=== PATIENT | male | born 1955 | race African-American/Black ===

== ENCOUNTER 2020-09-26 07:45 | Day surgery (SDC) | payer MEDICARE, MEDICAID ==
--- NOTE | 2020-09-25 16:24 | NUR ---
CONFIRMED PT APPT FOR VENAGRAM 09/26/20. VERIFIED WITH PT NO BLOOD THINNERS, CONFIRMED ARRIVAL TIME (PT TAKES PUBLIC TRANSPORTATION) AND VERIFIED NPO AFTER MIDNIGHT STATUS.
[~2020-09-26] VITALS: Ht 182.9 cm; Wt 127.3 kg
--- NOTE | ~2020-09-26 | HEMODYNAMI ---
PATIENT:ANJUM GEORGES MEDICAL RECORD: [id number] : 53 LOCATION:D. ADMISSION DATE: 09/26/20 Generatedon:111:24 Patient name: ANJUM GEORGES Patient #: [id number] SSN: : 1 08/27/1954 Date of study: 09/26/2020 Page: Of Hemodynamic Procedure Report Patient Data Patient Demographics Procedure consent was obtained First Name: ANJUM Gender: Male Last Name: JOSÉ MANUEL : 1955 Patient #: [id number] Age: 65 year(s) Race: Black Additional ID: [id number] Contact details [address]: [address] [place] [address] [place] State: [place] City: [place] Zip code: [address] Admission Admission Data Admission Date: 09/26/2020 Admission Time: 7:45 Procedure Procedure Types Cath Procedure Peripheral Cath Diagnostic Procedure Miscellaneous Pleurex Procedure Description Procedure Date Procedure Date: 09/26/2020 Procedure Start Time: 10:15 Procedure Staff Name Function Satinder Craig MD Performing Physician Jarek David RT Monitor LEIA NIETO RT Scrub Albania Aguilera RN Nurse Maricruz Rodriguez RN Nurse Procedure Data Cath Procedure Fluoroscopy Diagnostic fluoroscopy Total fluoroscopy Time: time: 16.9 min 16.9 min Diagnostic fluoroscopy Total fluoroscopy dose: dose: 1405 mGy 1405 mGy Procedure Medications Medication Administration Route Dosage Heparin Flush Bag added to field 2 bags (1000units/500ml NS) Lidocaine 1% added to field 20 Fentanyl I.V. 50 mcg Versed I.V. 1 mg Fentanyl I.V. 50 mcg Versed I.V. 1 mg Hemodynamics Rest Heart Rate: 58 (bpm) Snapshots Pre Cath Intra NCS Post Cath Vital Signs Time Heart Resp SPO2 etCO2 NIBP (mmHg) Rhythm Pain Sedation Rate (ipm) (%) (mmHg) Status Level (bpm) 9:58:28 8 95 36 119/75(94) NSR 0 (11) 10(A) , No pain 10:02:38 66 9 38.3 131/79(105) NSR 0 (11) 10(A) , No pain 10:06:50 59 12 31.5 133/74(107) NSR 0 (11) 10(A) , No pain 10:11:10 58 7 36.8 120/74(90) NSR 0 (11) 10(A) , No pain 10:15:18 58 19 70 34.5 127/99(124) NSR 0 (11) 10(A) , No pain 10:19:32 57 8 0 127/73(106) NSR 0 (11) 8(A) , No pain 10:23:48 57 9 36.8 124/72(109) NSR 0 (11) 8(A) , No pain 10:28:04 57 12 42.8 132/73(110) NSR 0 (11) 8(A) , No pain 10:32:18 57 10 39.8 139/80(117) NSR 0 (11) 8(A) , No pain 10:36:40 58 17 3.7 135/76(108) NSR 0 (11) 8(A) , No pain 10:41:33 58 11 24.7 137/102(122) NSR 0 (11) 8(A) , No pain 10:45:47 57 11 99 21.7 121/76(109) NSR 0 (11) 8(A) , No pain 10:50:05 58 10 100 40.5 126/74(109) NSR 0 (11) 8(A) , No pain 10:54:19 57 12 38.3 120/76(92) NSR 0 (11) 8(A) , No pain 10:58:35 57 12 39 126/73(106) NSR 0 (11) 8(A) , No pain 11:03:34 57 14 37.5 Measuring NSR 0 (11) 8(A) , No pain 11:03:51 57 12 69 37.5 122/75(106) NSR 0 (11) 8(A) , No pain 11:08:09 57 22 38.3 131/66(112) NSR 0 (11) 8(A) , No pain 11:12:27 59 20 30.8 133/79(108) NSR 0 (11) 8(A) , No pain 11:16:43 58 22 41.3 128/89(95) NSR 0 (11) 8(A) , No pain 11:20:57 58 16 39 140/83(120) NSR 0 (11) 8(A) , No pain Medications Time Medication Route Dose Verified Delivered Reason Notes Effec tiveness by by 10:01:00 Heparin Flush added 2 Satinder Rajan used for Bag to bags Rafa Craig MD procedure (1000units/500ml field DAVIS NS) 10:01:10 Lidocaine 1% added 20ml Satinder Rajan to vial Rafa Craig MD field MD 10:18:11 Fentanyl I.V. 50 Satinder Lovelace for mcg Willy Craig RN sedation 10:18:24 Versed I.V. 1 mg Satinder Lovelace for Willy Craig RN sedation 11:03:50 Fentanyl I.V. 50 Satinder Lovelace for mcg Willy Craig RN sedation 11:04:02 Versed I.V. 1 mg Satinder Lovelace for Willy Craig RN sedation Procedure Log Time Note 9:51:30 Maricruz Rodriguez RN sent for patient. Start room use. 9:51:42 Time tracking: Regular hours (M-F 7:00 - 5:00) 9:51:47 Plan of Care:Hemodynamics will remain stable., Cardiac rhythm will remain stable., Comfort level will be maintained., Respiratory function will remain adequate., Patient/ family verbilizes understanding of procedure., Procedure tolerated without complication., Recovers from procedure without complications.. 9:51:52 Use device set IR Diagnostic 9:51:53 Bag Decanter (2002S) opened to sterile field. 9:51:54 Sterile Angiographic Pack opened to sterile field. 9:51:55 Tegaderm 4 x 4 (1626W) opened to sterile field. 9:52:04 Patient received from Outpatients to IR Alert and oriented. Tansferred to table in Supine position. 9:52:06 Signed procedure consent form obtained from patient. 9:52:09 Correct patient and procedure confirmed by team. 9:52:10 ECG and BP/O2 sat monitors applied to patient. 9:52:11 Full Disclosure recording started 9:52:12 - 9:52:18 H&P Date Dictated: 09/26/2020 H&P Addendum completed by physician on day of procedure. (MUST COMPLETE FOR ALL OUTPATIENTS). 9:52:18 Pre-procedure instructions explained to patient. 9:52:19 Pre-op teaching completed and patient verbalized understanding. 9:52:21 Patient NPO since Midnight. 9:52:29 Is the patient allergic to Iodine/contrast media? No. 9:52:32 Is patient on blood thinner?No 9:54:51 - 9:54:52 ----Pre-sedation anethsthesia assessment.---- 9:54:57 Snore? Yes 9:54:59 Previous problem with sedation/anesthesia? No ? 9:55:01 Sleep apnea? No 9:55:07 Deviated septum? No 9:55:08 Opens mouth fully? Yes 9:55:10 Sticks out tongue? Yes 9:55:12 Airway obstruction? No ? 9:55:14 Dentures? No ? 9:55:27 Right Arm area was prepped with chlora-prep and draped in sterile fashion 9:56:27 IV patent on arrival in left IJ with 0.9% NaCl at O. 9:56:30 Alarms reviewed by Tamera Weinberg 9:56:30 Sharps counted by scrub and verified by Mundo 9:57:22 Vital chart was started 10:01:00 Heparin Flush Bag (1000units/500ml NS) 2 bags added to field was administered by Satinder Craig MD; used for procedure; Verbal order read back and verified. 10:01:10 Lidocaine 1% 20ml vial added to field was administered by Satinder Craig MD; ; Verbal order read back and verified. 10:05:57 Baseline sample Acquired. 10:14:46 Physician arrived 10::47 --------ALL STOP TIME OUT------ 10:14:47 Final Timeout: patient, procedure, and site verified with staff and physician. All members of the team are in agreement. 10:14:53 Right Arm site verified by team. 10:14:58 Fire Safety Assessment: A--An alcohol-based skin anteseptic being used preoperatively., C--Open oxygen or nitrous oxide is being used. 10:15:04 Sedation plan: IV Moderate Sedation Medication:Versed, Fentanyl 10:15:09 Procedure started. 10:15:21 Local anesthetic to right arm with Lidocaine 1% by Satinder Craig MD.INITIAL ACCESS ONLY 10:15:29 Micropuncture VSI 4FR kit opened to sterile field. 10:15:29 GLIDE WIRE ANGLE 180cm (VR9778) opened to sterile field. 10:15:30 GLIDE CATHETER 5FR ANGLED 65cm (CG507) opened to sterile field. 10:18:11 Fentanyl 50 mcg I.V. was administered by Albania Aguilera RN; for sedation ; Verbal order read back and verified. 10:18:24 Versed 1 mg I.V. was administered by Albania Aguilera RN; for sedation; Verbal order read back and verified. 10:20:40 DOUBLE ENDED GUIEDWIRE DOC 145CM (X28371) opened to sterile field. 10:20:42 SHEATH 5FR [place] (YRJ797) opened to sterile field. 10:29:58 GLIDE WIRE Angled Super Stiff 180cm (LE8294) opened to sterile field. 11:03:50 Fentanyl 50 mcg I.V. was administered by Albania Aguilera RN; for sedation ; Verbal order read back and verified. 11:04:02 Versed 1 mg I.V. was administered by Albania Aguilera RN; for sedation; Verbal order read back and verified. 11:11:11 CXI Catheter 90cm (M21311) opened to sterile field. 11:16:14 Procedure ended.(Physican Out) 11:16:24 Fluoroscopy time 16.90 minutes. 11:16:31 Fluoroscopy dose: 1405 mGy 11:16:31 Flurop Dose total: 1405 11:17:24 Post right femoral vein:stable 11:17:28 Post left femoral vein:stable 11:17:34 Post right arm:stable 11:17:49 Post-op/insertion site Right Femoral vein dressed using a 4 x 4 and Tegaderm.x2 11:18:50 Procedure and supply charges have been captured, reviewed, submitted an d are correct. 11:23:55 Report given to Outpatients. 11:23:59 Patient transfered to Outpatients with Bed. 11:24:29 Vital chart was stopped Device Usage Item Name Manufacture Quantity Catalog Hospital Part Current Minima l Lot# / Number Charge Number Stock Stock Serial# Code Bag Decanter Microtek 1 [id number] 5 () Medical Inc. Sterile Cardinal 1 [id number] 078191 340841 5 Angiographic Health Pack Tegaderm 4 x 3M 1 1626W 141057 874764 682040 5 4 (1626W) Micropuncture VSI VASCULAR 1 7266V 970753 416017 5 VSI 4FR kit SOLUTIONS GLIDE WIRE Terumo 1 [id number] 156466 948142 030860 5 ANGLE 180cm (RI6225) GLIDE Terumo 1 CG507 813562 167400 5 CATHETER 5FR ANGLED 65cm (CG507) DOUBLE ENDED [employer] 1 G09664 489452 709367 1 [id number] GUIEDWIRE DOC 145CM (B65732) SHEATH 5FR Terumo 1 KEF535 776606 367842 499338 5 [place] (PMN146) GLIDE WIRE Terumo 1 KP7527 866926 899801 5 Angled Super Stiff 180cm (ZV0390) CXI Catheter [employer] 1 F72039 836025 368005 093117 5 [id number] 90cm (J76611) Signature Audit [place] Stage Time Signature Unsigned Intra-Procedure 09/26/2020 Jarek 11:24:[address] [facility] RT (R) (CV) [facility] [address] [place] [address]
[2020-09-26 08:29] LABS: BASOPHILS 1.1 % (0-2); EOSINOPHILS 3.6 % (0-7); HEMATOCRIT 28.1 % (42.0-54.0); HEMOGLOBIN 8.6 g/dL (13.5-17.5); IMMATURE GRANULOCYTES 0.5 % (0-5); LYMPHOCYTE ABS# 1.45 10x3/uL (1.32-3.57); LYMPHOCYTES 32.7 % (15-50); MCH 28.6 pg (26.0-34.0); MCHC 30.6 g/dL (31.0-37.0); MCV 93.4 fL (80.0-100.0); MEAN PLATELET VOLUME 9.9 fL (7.4-10.4); NEUTROPHIL ABS# 2.44 10x3/uL (1.78-5.38); NEUTROPHILS 55.1 % (40-80); PLATELET COUNT 137 10x3/uL (130-400); RBC 3.01 10x6/uL (4.20-6.10); RDW 15.4 % (11.5-14.5); WBC 4.4 10x3/uL (4.8-10.8)
[2020-09-26 08:43] LABS: APTT 31.8 SECONDS (22.8-39.4); INR 1.28 (0.85-1.17); PROTIME 14.8 SECONDS (11.6-15.0)
[2020-09-26 08:51] LABS: ANION GAP 20.6 mmol/L (8-16); CARBON DIOXIDE 21.8 mmol/L (21.0-32.0); CREATININE - SERUM 7.4 mg/dL (0.6-1.3); POTASSIUM - SERUM 3.4 mmol/L (3.5-5.1)
[2020-09-26 08:54] LABS: CALCIUM 6.8 mg/dL (8.5-10.1)
[2020-09-26 08:59] VITALS: BP 113/77; Ht 182.9 cm; Wt 127.3 kg
[2020-09-26] MEDS ORDERED: KLONOPIN1 MG PO (09:03)
[2020-09-26] MEDS ORDERED: VELPHORO500 MG PO (09:04)
[2020-09-26] MEDS ORDERED: COZAAR50 MG PO (09:04)
[2020-09-26] MEDS ORDERED: RENA-VITE TABL0.8 MG PO (09:04)
[2020-09-26] MEDS ORDERED: TIROSINT50 MCG PO (09:05)
== END 2020-09-26 13:30 | disposition home or self-care (01) ==
LOC: D.SP 07:45 → D.OPS 09:15 → D.SP 13:30
PROVIDERS: Radiology Vascular & Interventional Radiology; ATTEND Surgery
DX: N18.6 End stage renal disease (principal); Z99.2 Dependence on renal dialysis; I87.1 Compression of vein; I10 Essential (primary) hypertension; E11.22 Type 2 diabetes mellitus with diabetic chronic kidney disease

== ENCOUNTER 2020-10-13 08:51 | Day surgery (SDC) | payer MEDICARE, MEDICAID ==
--- NOTE | 2020-10-10 13:27 | NUR ---
CONFIRMED WITH PT NPO STATUS TUESDAY NIGHT AFTER MIDNIGHT; HE DENIES ANY BLOOD THINNERS; PT WILL BE RIDING BUS HOME AFTER PROCEDURE.
[~2020-10-13] VITALS: Ht 182.9 cm; Wt 127.3 kg
--- NOTE | ~2020-10-13 | HEMODYNAMI ---
PATIENT:ANJUM GEORGES MEDICAL RECORD: [id number] : 53 LOCATION:DDOMINIC ADMISSION DATE: 10/13/20 Generatedon:114:15 Patient name: ANJUM GEORGES Patient #: [id number] SSN: : 1 08/27/1954 Date of study: 10/13/2020 Page: Of Hemodynamic Procedure Report Patient Data Patient Demographics Procedure consent was obtained First Name: ANJUM Gender: Male Last Name: JOSÉ MANUEL : 1955 Patient #: [id number] Age: 65 year(s) Race: Black Additional ID: [id number] Contact details Address: [address] [place] [address] [facility] State: [place] City: [place] Zip code: [address] Past Medical History Allergies Allergen Reaction Date Comments Reported Other allergy 10/13/2020 lisinopril Admission Admission Data Admission Date: 10/13/2020 Admission Time: 8:51 Procedure Procedure Types Cath Procedure Peripheral Cath Diagnostic Procedure Venography Extremity Left Upper Ext. Venagram Procedure Description Procedure Date Procedure Date: 10/13/2020 Procedure Start Time: 12:09 Procedure Staff Name Function Satinder Craig MD Performing Physician Preethi Lamas RT Reserves Clerk Jame Masterson CRNA Additional personnel Albania Aguilera RN Nurse Jarek David RT Scrub Procedure Data Cath Procedure Fluoroscopy Diagnostic fluoroscopy Total fluoroscopy Time: 26 time: 26 min min Diagnostic fluoroscopy Total fluoroscopy dose: dose: 1728 mGy 1728 mGy Contrast Material Contrast Material Type Amount (ml) Isovue 300 115 Diagnostic catheters Device Type Used For End Catheter Placement Merit Impress COBRA 2 5Fr 65CM catheter ([id number]) Procedure Medications Medication Administration Route Dosage Heparin Flush Bag added to field 3 bags (1000units/500ml NS) Lidocaine 1% added to field 20 Refer to Anesthesia Notes for Sedation Medications Heparin Bolus I.V. 3000 units Hemodynamics Rest Pre Cath Intra NCS Post Cath Medications Time Medication Route Dose Verified Delivered Reason Notes Effe ctiveness by by 11:39:52 Heparin Flush added 3 Satinder Rajan used for Bag to bags Rafa Craig MD procedure (1000units/500ml field NS) 11:40:04 Lidocaine 1% added 20ml Satinder Satinder for local to vial Rafa Craig MD anesthetic field MD 11:41:28 Refer to Satinder Rajan Anesthesia Notes Rafa Craig MD for Sedation MD Medications 13:03:57 Heparin Bolus I.V. 3000 Satinder Lovelace units Willy Craig RN, MD Procedure Log Time Note 10:57:23 Use device set IR Diagnostic 10:58:33 GLIDE WIRE ANGLE 260cm (JF3919) opened to sterile field. 10:58:36 BUSH 260 wire (N93156) opened to sterile field. 10:58:37 DOUBLE ENDED GUIEDWIRE DOC 145CM (G78159) opened to sterile field. 10:58:38 Micropuncture VSI 4FR kit opened to sterile field. 10:58:39 TORQUE DEVICE PLASTIC .038 ( TD01) opened to sterile field. 10:58:39 Tegaderm 4 x 4 (1626W) opened to sterile field. 10:58:40 Sterile Angiographic Pack opened to sterile field. 10:58:41 Bag Decanter (2002S) opened to sterile field. 11:00:12 - 11:28:16 Time tracking: Regular hours (M-F 7:00 - 5:00) 11:39:52 Heparin Flush Bag (1000units/500ml NS) 3 bags added to field was administered by Satinder Craig MD; used for procedure; Verbal order read back and verified. 11:40:04 Lidocaine 1% 20ml vial added to field was administered by Satinder Craig MD; for local anesthetic; Verbal order read back and verified. 11:41:28 Refer to Anesthesia Notes for Sedation Medications was administered by Satinder Craig MD; ; Verbal order read back and verified. 11:41:46 Patient received from Outpatients to IR Alert and oriented. Tansferred to table in Supine position. 11:41:51 Signed procedure consent form obtained from patient. 11:41:57 - 11:42:02 H&P Date Dictated: 10/13/2020 Within 30 days and on chart., H&P Addendum completed by physician on day of procedure. (MUST COMPLETE FOR ALL OUTPATIENTS). 11:42:05 Pre-procedure instructions explained to patient. 11:42:06 Pre-op teaching completed and patient verbalized understanding. 11:42:08 Family unavailable. 11:42:11 Patient NPO since Midnight. 11:42:41 Patient allergic to Other allergylisinopril 11:42:49 Is the patient allergic to Iodine/contrast media? No. 11:42:56 Is patient on blood thinner?No 11:43:14 Patient diabetic? Yes. 11:43:59 ----Pre-sedation anethsthesia assessment.----see anesthesia notes for monitoring of patient during procedure 11:44:45 - 11:45:15 GLIDE CATHETER 5FR ANGLED 65cm (CG507) opened to sterile field. 11:47:12 Left groin area was prepped with chlora-prep and draped in sterile fashion 11:47:19 Left Arm area was prepped with chlora-prep and draped in sterile shannano loyd 12:08:48 Physician arrived 12:08:48 --------ALL STOP TIME OUT------ 12:08:49 Final Timeout: patient, procedure, and site verified with staff and physician. All members of the team are in agreement. 12:09:11 Fire Safety Assessment: A--An alcohol-based skin anteseptic being used preoperatively., C--Open oxygen or nitrous oxide is being used. 12:09:16 5) <15 or on dialysis Very severe, or end stage kidney failure. 12:09:22 Procedure started. 12::23 Full Disclosure recording started 12:09:29 Local anesthetic to left femoral vein with Lidocaine 1% by Satinder Craig MD.INITIAL ACCESS ONLY 12:27:42 SHEATH 5FR [place] (GRH126) opened to sterile field. 12:43:29 A [employer]anks COBRA 2 5Fr 65CM catheter ([id number]) was advanced over the wire and used for . 12:53:01 ROADRUNNER .035 145 glide wire (N79296) opened to sterile field. 12:55:50 [place] 260 wire (U74133) opened to sterile field. 13:03:57 Heparin Bolus 3000 units I.V. was administered by Albania Aguilera RN; ; Verbal order read back and verified. 13:19:04 SHEATH 5FR [place] (AAV372) opened to sterile field. 13:23:00 CXI Catheter 90cm (H83376) opened to sterile field. 13:31:27 TORQUE DEVICE PLASTIC .038 ( TD01) opened to sterile field. 13:35:49 ROADRUNNER .035 260 glide wire (I72726) opened to sterile field. 13:35:56 Navicross Support Straight .035 150cm catheter (PT22334) opened to sterile field. 13:42:38 CHOICE PT Extra Support J 300cm guide wire ([id number]) opened to steril e field. 14:11:04 Procedure ended.(Physican Out) 14:12:28 Fluoroscopy time 26.00 minutes. 14:12:35 Fluoroscopy dose: 1728 mGy 14:12:35 Flurop Dose total: 1728 14:13:14 Contrast amount:Isovue 300 115ml. 14:13:18 Procedure and supply charges have been captured, reviewed, submitted an d are correct. 14:14:24 Report given to PCU. Device Usage Item Name Manufacture Quantity Catalog Number Hospital Part Current Min imal Lot# / Charge Number Stock Stock Serial# Code GLIDE WIRE Terumo 1 [id number] 039043 802638 080290 5 ANGLE 260cm (YK3726) BUSH 260 [facility] 1 P79474 105853 263579 392454 5 wire (O00392) DOUBLE ENDED [facility] 1 F19673 633345 635458 1 GUIEDWIRE DOC 145CM (B85713) Micropuncture VSI VASCULAR 1 7266V 844288 055650 5 VSI 4FR kit SOLUTIONS TORQUE DEVICE [place]ath 2 TD01 492208 650599 930409 5 PLASTIC .038 Scientific ( TD01) Tegaderm 4 x 3M 1 1626W 565658 936782 528966 5 4 (1626W) Sterile Cardinal 1 [id number] 650059 825683 5 Angiographic Health Pack Bag Decanter Microtek 1 2002S 876498 94615 886581 5 (2001S) Medical Inc. GLIDE Terumo 1 CG507 938041 922025 5 CATHETER 5FR ANGLED 65cm (CG507) SHEATH 5FR Terumo 2 USN226 717268 334141 796738 5 [place] (MEO351) Merit Impress Merit 1 [id number] 864266 061956 390357 5 COBRA 2 5Fr Medical 65CM catheter ([id number]) [facility] 1 I52034 552531 462154 352353 5 [id number] .035 145 glide wire (F20450) [place] 260 [facility] 1 G92206 722845 432672 464211 5 wire (I21924) CXI Catheter [facility] 1 T04377 284034 518751 303408 5 07853457 90cm (A67417) [facility] 1 F78640 879689 776826 531485 5 .035 260 glide wire (K88512) Navicross Terumo 1 RE52842 067573 394319 809216 5 Support Straight .035 150cm catheter (NJ65405) CHOICE PT Conrath 1 [id number] 281471 062941 445022 5 Extra Support Scientific J 300cm guide wire (1068599D4) Signature Audit [place] Stage Time Signature Unsigned Intra-Procedure 10/13/2020 Preethi Lamas 2:14:55 PM RT(R) [facility] [address] [place] [address]
[~2020-10-13 08:51] MED LIST: COZAAR50 MG PO; KLONOPIN1 MG PO; RENA-VITE TABL0.8 MG PO; TIROSINT50 MCG PO; VELPHORO500 MG PO
[2020-10-13 09:50] LABS: ANION GAP 16.6 mmol/L (8-16); CALCIUM 7.6 mg/dL (8.5-10.1); CARBON DIOXIDE 21.8 mmol/L (21.0-32.0); CREATININE - SERUM 9.9 mg/dL (0.6-1.3); POTASSIUM - SERUM 4.4 mmol/L (3.5-5.1)
[2020-10-13] MEDS ORDERED: CLONIDINE HCL0.1 MG PO (09:50)
[2020-10-13] MEDS ORDERED: LANTUS INS100 UNITS/ SC (09:51)
[2020-10-13 09:54] VITALS: BP 194/75; Ht 182.9 cm; Wt 127.3 kg
[2020-10-13 09:57] LABS: BASOPHILS 0.5 % (0-2); EOSINOPHILS 2.7 % (0-7); HEMATOCRIT 35.2 % (42.0-54.0); HEMOGLOBIN 11.4 g/dL (13.5-17.5); IMMATURE GRANULOCYTES 0.7 % (0-5); LYMPHOCYTE ABS# 0.97 10x3/uL (1.32-3.57); LYMPHOCYTES 23.8 % (15-50); MCH 29.3 pg (26.0-34.0); MCHC 32.4 g/dL (31.0-37.0); MCV 90.5 fL (80.0-100.0); MONOCYTES 6.9 % (2-11); NEUTROPHIL ABS# 2.67 10x3/uL (1.78-5.38); NEUTROPHILS 65.4 % (40-80); RBC 3.89 10x6/uL (4.20-6.10); RDW 15.6 % (11.5-14.5); WBC 4.1 10x3/uL (4.8-10.8)
[2020-10-13 10:06] LABS: APTT 21.8 SECONDS (22.8-39.4); INR 1.35 (0.85-1.17); PROTIME 15.5 SECONDS (11.6-15.0)
[2020-10-13 11:15] LABS: PLATELET COUNT 102 10x3/uL (130-400)
--- NOTE | 2020-10-13 16:55 | NUR ---
PATIENT DRESSING IN PERSONAL CLOTHING, C/O SEVERE BACK PAIN, STATES "YES I HAVE CHRONIC BACK PAIN BUT IT'S REALLY BAD BECAUSE I HAVEN'T HAD MY MEDICINE." CALL PLACED TO DR GALDAMEZ
--- NOTE | 2020-10-13 17:07 | NUR ---
PATIENT WISHES TO TAKE JUST THE TYLENOL #3 BECAUSE SCAT BUS IS HERE AND HE WISHES TO BE DISCHARGED GLO. DISCHARGE INSTRUCTIONS REVIEWED WITH PATIENT, PATIENT SITTING IN CHAIR IN ROOM, DRESSED IN PERSONAL CLOTHING
== END 2020-10-13 17:26 | disposition home or self-care (01) ==
LOC: D.SP 08:51 → D.RAD 11:00 → EDSTATUS 11:00 → D.SP 11:00
PROVIDERS: General Practice; ATTEND Surgery
DX: N18.6 End stage renal disease (principal); Z99.2 Dependence on renal dialysis; I10 Essential (primary) hypertension; E11.22 Type 2 diabetes mellitus with diabetic chronic kidney disease

== ENCOUNTER 2020-11-14 06:28 | Day surgery (SDC) | payer MEDICARE, MEDICAID ==
[~2020-11-14] VITALS: Ht 182.9 cm; Wt 129.7 kg
[~2020-11-14 06:28] MED LIST changes: +CLONIDINE HCL0.1 MG PO; +LANTUS INS100 UNITS/ SC
[2020-11-14 07:13] LABS: BASOPHILS 0.4 % (0-2); EOSINOPHILS 2.2 % (0-7); HEMATOCRIT 33.6 % (42.0-54.0); HEMOGLOBIN 10.4 g/dL (13.5-17.5); IMMATURE GRANULOCYTES 0.2 % (0-5); LYMPHOCYTE ABS# 1.31 10x3/uL (1.32-3.57); LYMPHOCYTES 28.4 % (15-50); MCV 93.6 fL (80.0-100.0); MEAN PLATELET VOLUME 9.5 fL (7.4-10.4); MONOCYTES 6.5 % (2-11); NEUTROPHIL ABS# 2.87 10x3/uL (1.78-5.38); NEUTROPHILS 62.3 % (40-80); RBC 3.59 10x6/uL (4.20-6.10); RDW 14.9 % (11.5-14.5); WBC 4.6 10x3/uL (4.8-10.8)
[2020-11-14 07:22] LABS: PLATELET COUNT 180 10x3/uL (130-400)
[2020-11-14 07:30] LABS: ANION GAP 17.1 mmol/L (8-16); CALCIUM 8.2 mg/dL (8.5-10.1); CREATININE - SERUM 6.4 mg/dL (0.6-1.3); POTASSIUM - SERUM 4.1 mmol/L (3.5-5.1)
[2020-11-14 07:56] LABS: INR 1.25 (0.85-1.17); PROTIME 14.6 SECONDS (11.6-15.0)
[2020-11-14] MEDS ORDERED: CALCIUM 500 +1 EAC3 PO (09:56)
[2020-11-14] MEDS ORDERED: COREG25 MG PO (09:56)
[2020-11-14] MEDS ORDERED: LASIX80 MG PO (09:56)
[2020-11-14] MEDS ORDERED: HYDRALAZINE HCL25 MG PO (09:57)
[2020-11-14 10:10] VITALS: Ht 182.9 cm; Wt 129.7 kg
--- NOTE | 2020-11-14 16:48 | NUR ---
1535 IV REMOVED AND PRESSURE HELD. INSTRUCTION AND RX GIVEN TO PT SCAT BUS. CALLED BY PT AND ARRANGED TO SOFTWARE TOOLS ENGINEER AT 4PM IN FRONT OF HOSPITAL. AND PT WHEELED TO FRONT OF HOSPITAL SO PT COULD SMOKE. PT WAITED FOR [employer] BUS. ARRIVED AROUND 1640
--- NOTE | 2020-11-17 17:19 | OP ---
PATIENT NAME: ANJUM DOVE MEDICAL RECORD: [id number] :53 LOCATION:[facility] ADMISSION DATE: SURGEON: CORDELIA BOJORQUEZ MD DATE OF OPERATION: 11/14/2020 REFERRED BY: Dr. Lan of [place]. PREOPERATIVE DIAGNOSES: End-stage renal disease and dependence on hemodialysis and thrombophilia with loss of prior accesses due to proximal venous occlusion. OPERATION PERFORMED: Today, implantation of a PTFE AV graft in the left upper arm, between the proximal brachial artery and proximal basilic vein. SURGEON: Cordelia Bojorquez MD ANESTHESIA: General per DIRECTOR COMMUNICATIONS. The patient declining regional nerve block. PREOPERATIVE NOTE: Mr. Dove is a 65-year-old -[place] male from [place]. He has end-stage renal disease and has had failed accesses in the right upper extremity and has been found to have a chronically occluded right subclavian vein and also a severely stenotic right brachiocephalic vein. Attempts to recanalize the subclavian vein had been unsuccessful and he will be referred back to interventional radiology for stenting of the brachiocephalic vein stenosis, but today he was brought to the OR to implant a graft or if possible create a fistula in his left arm. DESCRIPTION OF PROCEDURE: With the patient under general anesthesia in supine position, the left arm was prepped and draped in a sterile manner. I examined it with ultrasound after applying a [place] drain as a proximal venous tourniquet and applying nitroglycerin ointment to the intact skin of the upper arm and forearm. I was disappointed to find really no usable veins in his forearm or antecubital space. The brachial artery appeared to be a satisfactory vessel. There was a good proximal axillary vein and axillary artery and proximal brachial artery and basilic vein and I elected to go ahead with a proximal loop graft. I made a longitudinal incision over the vessels just lateral to the axilla and exposed the proximal basilic vein and the proximal brachial artery and controlled it with Silastic loops. I chose a 4-7 taper Propaten Intering PTFE AV graft. The arterial end was bevelled and prepared for anastomosis. The artery was occluded and a small arteriotomy was made and the artery flushed proximally and distally with heparinized saline. The arterial graft was then anastomosed end of graft to side of artery with running 6-0 Prolene. The suture line was treated with topical fibrillar and hemostasis was adequate after a period of gentle gauze compression. The graft and artery were then again flushed with heparinized saline and the graft clamped. A distal counter incision was made just above the antecubital space and the graft was placed in a gently looping, very superficial subcutaneous tunnel down the anterior aspect of the arm and then back up on the medial aspect of the arm to the primary incision. the graft was bevelled and prepared for anastomosis. The vein was occluded proximally and distally with Silastic loops and clamps as needed. Venotomy was made proximal to a valve and I could see there it probably had been phlebitis in the area of that valve in the past. There was no thrombus, but there was deformity of the valve leaflets. The proximal vein seemed to be quite clear. The vein was flushed proximally and distally with heparinized saline and OPERATIVE REPORT [id number] ANJUM DOVE the graft was anastomosed end of graft to side of vein with continuous running 6-0 Prolene. The suture line required a few additional sutures to achieve hemostasis and it also was treated with Evicel fibrin sealant. When that had been completed and a suitable time elapsed, the occluding clamps and loops were released and excellent flow developed immediately in the new graft and the suture lines were both quite hemostatic. There was good flow in the brachial artery distal to the anastomosis and there was excellent arterial pulsatile flow in the ulnar artery at the wrist by Doppler. Flow in the radial artery was quite dampened and occlusion of the graft really had very little effect on the wrist Doppler signals. The wound was infiltrated with 0.25% Marcaine with epinephrine and irrigated with saline. Hemostasis was achieved with electrocautery and the wound was closed in layers with interrupted 3-0 Vicryl and running intracuticular 4-0 Stratafix. The incision was sealed with Dermabond glue and dressed with Maxorb AG, Cavilon, skin prep and a Tegaderm. The counter incision or distal counter incision was closed in a similar manner. The patient was awakened and in stable condition taken to the recovery room. PLAN: As soon as he is stable this afternoon, he will be able to go home and follow up with me in my office in about 2 weeks. He is instructed to resume or continue his same home medications and regular dialysis schedule. He is to keep the dressings dry and intact. He can wait and I will remove them when he comes back to see me in the office in 2 weeks or the dressings could be changed by the nurses in dialysis after 5 to 7 days. Because of the previous venous occlusions and the abnormality of the vein to which I landed the graft today, I am placing him on Eliquis 5 mg b.i.d., which I planned for him to take indefinitely. Also for pain, I am prescribing [place] 5/325, 15 tablets. He may take 1-2 p.o. every 4 hours p.r.n. pain. TRANSINT:[id number] Voice Confirmation ID: [id number] DOCUMENT ID: [id number] cc: [facility] in [place]. CORDELIA BOJORQUEZ MD at 0928 CC: LOUISA LAN MD [id number] DICTATION DATE: 11/14/20 1411 STAFF RESEARCH ASSOCIATE: 11/14/20 1714 [facility] 11/14/20 [place] [place] [address]
== END 2020-11-14 16:00 | disposition home or self-care (01) ==
LOC: D.OPS 06:28
PROVIDERS: ATTEND Surgery
DX: N18.6 End stage renal disease (principal); Z99.2 Dependence on renal dialysis; I10 Essential (primary) hypertension; E11.22 Type 2 diabetes mellitus with diabetic chronic kidney disease; E07.9 Disorder of thyroid, unspecified